=== PATIENT | male | born 1955 | race Caucasian/White ===

== ENCOUNTER 2016-08-08 23:32 | Emergency (ER) | payer OTHER ==
[~2016-08-08] VITALS: Ht 177.8 cm; Wt 93.0 kg
--- NOTE | 2016-08-09 00:17 | ED GENERAL ADULT ---
History of Present Illness General Chief Complaint: General Adult Stated Complaint: " MY BLOOD PRESSURE IS THROUGH THE ROOF" HX A-FIB Source: patient Exam Limitations: no limitations Vital Signs & Intake/Output Vital Signs & Intake/Output Vital Signs Date Time Temp Pulse Resp B/P Pulse O2 O2 Flow FiO2 Ox Delivery Rate 08/08 2357 97.6 74 20 185/88 96 Room Air Allergies Coded Allergies: MDX - Nitroglycerin (NITROGLYCERIN) (SEVERE HYPOTENSION 07/07/11) MDX - PCN (penicillin) (PCN (PENICILLIN)) (RASH 07/07/11) Triage Nurses Notes Reviewed? yes HPI: Patient was checked and his blood pressure this evening and it was elevated in the morning he checked at the higher went so the patient said to come in for evaluation. Patient denies any headache. Patient states he did have some blurry vision in his right eye when he was looking closely attends there is no blurry vision with seeing things far away. Those symptoms have subsequently resolved. There is been no nausea or vomiting. Patient also states that he has been having some fluttering in his chest all day. Patient does have a history of lone A. fib which converted after 18 hours of hospital admission. Patient was started on Eliquis as well as metoprolol but both those medications have subsequently been stopped. Patient has not had any more issues of atrial fibrillation for the past 3 years. He checks his blood pressure a few times each day and a normal toxoids anywhere from 116/[address] to 160s over 80s. Patient states that he is he has primary care physician for this and even wore a 24-hour blood pressure monitoring. Patient states that he was told that he has whitecoat hypertension. Past History Medical History Any Pertinent Medical History? see below for history Cardiovascular: AFIB (PAROXYSMAL) Cancer(s): prostate cancer Surgical History Surgical History: non-contributory Psychosocial History Who do you live with Patient/Self Services at Home None What is your primary language Croatian Tobacco Use: Never used ETOH Use: denies use Illicit Drug Use: denies illicit drug use Family History Hx Contributory? No Review of Systems Review of Systems Constitutional: Reports: no symptoms. EENTM: Reports: see HPI, blurred vision. Respiratory: Reports: no symptoms. Cardiovascular: Reports: see HPI, palpitations. GI: Reports: no symptoms. Genitourinary: Reports: no symptoms. Musculoskeletal: Reports: no symptoms. Skin: Reports: no symptoms. Neurological/Psychological: Reports: no symptoms. Hematologic/Endocrine: Reports: no symptoms. Immunologic/Allergic: Reports: no symptoms. All Other Systems: Reviewed and Negative Physical Exam Physical Exam General Appearance: well developed/nourished, alert, awake, anxious, mild distress Head: atraumatic, normal appearance Eyes: Bilateral: PERRL, EOMI. Ears, Nose, Throat: normal pharynx, normal ENT inspection, hearing grossly normal Neck: normal inspection, supple, full range of motion Respiratory: normal breath sounds, chest non-tender, no respiratory distress, lungs clear Cardiovascular: regular rate/rhythm, normal peripheral pulses Gastrointestinal: normal bowel sounds, soft, non-tender, no organomegaly Back: normal inspection, normal range of motion Extremities: normal inspection, normal capillary refill, normal range of motion, no edema Neurologic/Psych: no motor/sensory deficits, awake, alert, oriented x 3, normal gait, normal mood/affect Skin: intact, normal color, warm/dry Lymphatic: no anterior cervical darlyn Core Measures ACS in differential dx? Yes ASA ordered for poss ACS? No-ACS ruled out CVA/TIA Diagnosis: No Severe Sepsis Present: No Septic Shock Present: No Progress Differential Diagnoses I considered the following diagnoses in my evaluation of the patient: [ Hypertension, CVA, electrolyte abnormality, atrial fibrillation] Plan of Care: Orders Procedure Date/time Status TROPONIN LEVEL 08/09 15 Complete COMPREHENSIVE METABOLIC PANEL 08/09 15 Complete CBC WITHOUT DIFFERENTIAL 08/09 15 Complete EKG 08/08 2336 Active Laboratory Tests 08/09/16 0100: Anion Gap 15, Estimated GFR > 60, BUN/Creatinine Ratio 17.5, Glucose 104 H, Calcium 9.7, Total Bilirubin 0.9, AST 25, ALT 38, Alkaline Phosphatase 63, Troponin I < 0.01, Total Protein 7.2, Albumin 4.4, Globulin 2.8, Albumin/ Globulin Ratio 1.6, CBC w Diff NO MAN DIFF REQ, RBC 6.23 H, MCV 84.5, MCH 28.8, RDW 13.8, MPV 6.9 L, Gran % 39.6 L, Lymphocytes % 43.2, Monocytes % 15.5 H, Eosinophils % 1.0, Basophils % 0.7, Absolute Granulocytes 2.0, Absolute Lymphocytes 2.1, Absolute Monocytes 0.8 H, Absolute Eosinophils 0, Absolute Basophils 0, PUBS MCHC 34.1 Initial ED EKG: NSR, no ST T wave changes Prior EKG: unchanged Rhythm Strip: normal sinus rhythm Comments: Patient is refusing CAT scan of his head. Patient advised that his blood pressure has been running high and he had blurry vision in his right eye. Patient states that he does not have the blurry vision now and that he is aware of the risks that he might have had a stroke or an issue related to the prostate CA however he is refusing the CAT scan. Patient is alert and oriented and competent to make that decision. Departure Departure Disposition: HOME OR SELF CARE Condition: Stable Clinical Impression Primary Impression: Hypertension Secondary Impressions: Palpitations Referrals: ALBERTO BANKS,SEEMA Nieves (PCP/Family) Additional Instructions: FOLLOW UP WITH DR. DOMINGUEZ LATER TODAY RETURN IF SYMPTOMS WORSEN OR FOR ANY CONCERNS Departure Forms: Customer Survey General Discharge Information Critical Care Note Critical Care Note Critical Care Time: non-applicable
[2016-08-09 01:08] LABS: ABSOLUTE BASOPHIL COUNT 0 /CUMM (0.0-0.2); ABSOLUTE EOSINOPHIL COUNT 0 /CUMM (0.0-0.7); ABSOLUTE LYMPH COUNT 2.1 /CUMM (1.2-3.4); ABSOLUTE MONOCYTE COUNT 0.8 /CUMM (0.10-0.60); BASOPHIL % 0.7 % (0.0-2.0); GRANULOCYTE % 39.6 % (42.2-75.2); HEMATOCRIT 52.6 % (42-52); MEAN CORPUSCULAR HGB 28.8 PG (27.0-31.0); MEAN CORPUSCULAR HGB CONC 34.1 G/DL (33.0-37.0); MEAN CORPUSCULAR VOLUME 84.5 FL (80.0-94.0); MEAN PLATELET VOLUME 6.9 FL (7.4-10.4); PLATELET COUNT 116 /CUMM (130-400); RBC DISTRIBUTION WIDTH 13.8 % (11.5-14.5); RED BLOOD CELL CT 6.23 /CUMM (4.70-6.10)
[2016-08-09 02:19] VITALS: BP 141/71
== END 2016-08-09 02:22 ==
LOC: ERH 23:32
PROVIDERS: Emergency Medicine
DX: I10 Essential (primary) hypertension (principal); R00.2 Palpitations
CPT/HCPCS: 93005; 93010